=== PATIENT | female | born 1950 | race Caucasian/White ===

== ENCOUNTER 2021-10-09 08:53 | Emergency (ER) | payer MEDICARE ==
[~2021-10-09] VITALS: Ht 162.6 cm; Wt 69.5 kg
[~2021-10-09 08:53] MED LIST: ARMOUR THYROID90 MG PO; ASPIRIN 81M81 MG/TA2 PO; LEVEMIR100 U/ML SQ; LOPRESSOR 225 MG/TAB PO; NORCO 325 MG-51 TAB PO; ZESTRIL 10MG10 MG PO
[2021-10-09 09:02] VITALS: TEMP 98.6
[2021-10-09 09:29] LABS: BASO # 0.1 K/mm3 (0.0-0.2); BASO % 1.2 % (0.0-2.0); EOS # 0.6 K/mm3 (0.0-0.7); EOS % 7.5 % (0-4.0); GRAN % 49.9 % (42.2-75.2); HEMATOCRIT 43.5 % (37.0-47.0); HEMOGLOBIN 14.6 g/dl (12.5-16.0); LYMPH # 2.7 K/mm3 (1.2-3.4); LYMPH % 33.5 % (20.0-51.0); MEAN CELL VOLUME 87 fl (80.0-100.0); MEAN CORPUSCULAR HEMOGLOBIN 29 pg (27.0-31.0); MEAN CORPUSCULAR HGB CONC 34 g/dl (33.0-37.0); MEAN PLATELET VOLUME 9.1 fl (7.4-10.4); MONO # 0.6 K/mm3 (0.1-0.6); MONO % 7.8 % (1.7-9.3); PLATELET COUNT 255 K/mm3 (130-400); RED BLOOD COUNT 5.01 M/mm3 (4.10-5.30); REDCELL DISTRIBUTION WIDTH-CV 12.3 % (11.5-14.5)
[2021-10-09 09:45] LABS: ALANINE AMINOTRANSFERASE 17 U/L (0-55); ALBUMIN 4.2 gm/dL (3.4-4.8); ALKALINE PHOSPHATASE 105 U/L (40-150); ANION GAP 13 mmol/L (7-16); AST,SGOT 18 U/L (5-34); BILIRUBIN,TOTAL 0.5 mg/dL (0.2-1.2); BLOOD UREA NITROGEN 33 mg/dL (10-20); C-REACTIVE PROTEIN 0.38 mg/dL (0.00-0.50); CALCIUM 9.6 mg/dL (8.4-10.2); CARBON DIOXIDE 24 mmol/L (23-31); CHLORIDE 100 mmol/L (98-107); CREATININE, serum 1.28 mg/dL (0.57-1.11); GLUCOSE 293 mg/dL (70-99); LIPASE 42 U/L (8-78); POTASSIUM 4.3 mmol/L (3.5-4.5); SODIUM 137 mmol/L (136-145); TOTAL PROTEIN 7.6 gm/dL (6.2-8.1)
[2021-10-09 09:52] LABS: TROPONIN-I < 0.010 ng/mL (0.00-0.033)
[2021-10-09] MEDS ORDERED: NORCO 325 MG-51 TAB PO (10:31)
[2021-10-09] MEDS ORDERED: VALTREX1 GM PO (10:31)
[2021-10-09] MEDS ORDERED: LYRICA 75MG CAP75 MG PO (10:31)
[2021-10-09 10:58] VITALS: BP 170/82; PULSE 65
== END 2021-10-09 10:58 | disposition home or self-care (01) ==
LOC: COL.ER 08:53
PROVIDERS: Emergency Medicine
DX: B02.9 Zoster without complications (principal); M79.2 Neuralgia and neuritis, unspecified; E11.9 Type 2 diabetes mellitus without complications; I10 Essential (primary) hypertension; I25.10 Atherosclerotic heart disease of native coronary artery without angina pectoris; Z79.4 Long term (current) use of insulin; Z79.82 Long term (current) use of aspirin; Z79.899 Other long term (current) drug therapy